=== PATIENT | female | born 1995 | race Caucasian/White ===

== ENCOUNTER 2020-12-06 21:15 | Emergency (ER) | payer OTHER ==
[~2020-12-06 21:15] MED LIST: COLACE 100MG C100 MG PO; IBUPROFEN800 MG PO; MACRODANTIN100 MG PO; ZOFRAN 4 MG TAB4 MG PO
[2020-12-06] MEDS ORDERED: NARCAN4 MG (21:23)
== END 2020-12-06 21:27 | disposition home or self-care (01) ==
LOC: ER1 21:15
DX: T40.1X1A Poisoning by heroin, accidental (unintentional), initial encounter (principal)
CPT/HCPCS: 99284

== ENCOUNTER 2020-12-27 19:13 | Emergency (ER) | payer OTHER ==
[~2020-12-27 19:13] MED LIST changes: +NARCAN4 MG
[2020-12-27] MEDS ORDERED: ZOFRAN ODT 4 MG4 MG SL (21:40)
== END 2020-12-27 21:55 | disposition left against medical advice (07) ==
LOC: ER1 19:13
DX: T40.601A Poisoning by unspecified narcotics, accidental (unintentional), initial encounter (principal); F17.200 Nicotine dependence, unspecified, uncomplicated
CPT/HCPCS: 71045; 99284

== ENCOUNTER 2021-06-20 17:55 | Emergency (ER) | payer SELFPAY ==
[~2021-06-20 17:55] MED LIST changes: +ZOFRAN ODT 4 MG4 MG SL
== END 2021-06-20 23:45 | disposition home or self-care (01) ==
LOC: ER1 17:55
DX: T40.2X1A Poisoning by other opioids, accidental (unintentional), initial encounter (principal); F17.210 Nicotine dependence, cigarettes, uncomplicated
CPT/HCPCS: 71045; 80307; 93005; 99284; G0480; J2310

== ENCOUNTER 2022-02-17 00:15 | Emergency (ER) | payer SELFPAY | END 2022-02-17 01:39 | disposition home or self-care (01) | LOC: ER1 00:15 | DX: F15.10 Other stimulant abuse, uncomplicated (principal); R06.02 Shortness of breath; R51.9 Headache, unspecified; R00.0 Tachycardia, unspecified; G40.909 Epilepsy, unspecified, not intractable, without status epilepticus; F17.210 Nicotine dependence, cigarettes, uncomplicated | CPT/HCPCS: 71045; 99281 ==